=== PATIENT | male | born 1985 | race Caucasian/White ===

== ENCOUNTER 2022-03-24 08:59 | Emergency (ER) | payer BC, SELFPAY ==
[2022-03-24 09:04] VITALS: BP 150/87; PULSE 89; RESP 20; TEMP 37.1; O2SAT 100
--- NOTE | 2022-03-24 09:08 | ED.URI ---
HPI - URI/Sore Throat General Chief Complaint: Upper Respiratory Infection Stated Complaint: Sore Throat/Fever Time Seen by Provider: 03/24/22 09:08 Source: patient and RN notes reviewed History of Present Illness HPI Narrative: patient is a 36-year-old male who presents to the Urgent Care with complaints of sore throat, fever and cough. Patient states the cough started 3 days ago and he had a fever at 5:30 a.m. this morning of 103 F. Patient states that he has been taking ibuprofen. Denies any ill exposures. Denies any nausea or vomiting. No other acute complaints. Patient aware of the plan of care. Some parts of this dictation were generated by voice recognition software and may contain typographical and/or grammatical inaccuracies. Related Data Home Medications Medication Instructions Recorded Confirmed No Home Medications 03/24/22 03/24/22 Allergies Allergy/AdvReac Type Severity Reaction Status Date / Time No Known Allergies Allergy Verified 03/24/22 09:10 Review of Systems Review of Systems: CONSTITUTIONAL: Reports of fever EYES: Denies visual changes, redness, or discharge. ENT: reports of sore throat CARDIOVASCULAR: Denies chest pain, palpitations, or edema. RESPIRATORY: reports a cough without dyspnea GASTROINTESTINAL: Denies abdominal pain, nausea, vomiting, or diarrhea. GENITOURINARY: Denies dysuria or hematuria. SKIN: Denies rash or itching. MUSCULOSKELETAL: Denies back pain, joint pain, or myalgia. NEUROLOGIC: Denies headache, numbness, or weakness. All other systems reviewed are negative, except as documented in HPI. PMFSH Comments At the time of my signature, I reviewed and agree with the nursing past medical, surgical, social, and family history. There is no relevant family history pertinent to the patient complaint. Exam Narrative: GENERAL: This is a well-nourished, well-developed patient, in no apparent distress. HEAD: normocephalic, atraumatic. EYES: PERRL. Sclera clear/white. Vision is grossly intact. EARS: External ears normal, auditory canals clear and without drainage, TMs normal without perforation. Hearing grossly intact. NOSE: External nose normal with no obvious nasal discharge, nares without redness, no rhinorrhea. THROAT: Mucous membranes moist, posterior pharynx clear. mild postnasal drainage. NECK: Neck supple, non-tender Mild bilateral submandibular lymphadenopathy CARDIOVASCULAR: Regular rate and rhythm without murmurs, gallops, or rubs. RESPIRATORY: Clear to auscultation. Breath sounds equal bilaterally. No wheezes, rales, or rhonchi. SKIN: warm, intact with no suspicious lesions or rash, good texture and turgor. NEURO: awake, alert, and oriented to person, place and time. There were no obvious focal neurologic abnormalities. EXTREMITIES: No clubbing, cyanosis, or edema. Course Course Level of Care: Express Care Visit Vital Signs Vital signs: Vital Signs Temperature 98.8 F 03/24/22 09:04 Pulse Rate 89 03/24/22 09:04 Respiratory Rate 20 03/24/22 09:04 Blood Pressure 150/87 H 03/24/22 09:04 Pulse Oximetry 100 03/24/22 09:04 Oxygen Delivery Room Air 03/24/22 09:04 Temperature 98.8 F 03/24/22 09:11 Pulse Rate 89 03/24/22 09:11 Respiratory Rate 20 03/24/22 09:11 Blood Pressure 150/87 H 03/24/22 09:11 Pulse Oximetry 100 03/24/22 09:11 Oxygen Delivery Room Air 03/24/22 09:11 Reviewed- Patient is informed that they may have pre-hypertension or hypertension based on a blood pressure reading in the department. I recommend the patient call the primary care provider listed on their discharge instructions or a physician of their choice this week to arrange follow-up for further evaluation of possible pre-hypertension or hypertension. MDM - URI/Sore Throat MDM Narrative Medical decision making narrative: due to the lack of resources at our facility, unable to test for rapid strep or influenza. We will send a culture for
[2022-03-24 09:11] VITALS: BP 150/87; PULSE 89; RESP 20; TEMP 37.1; O2SAT 100
== END 2022-03-24 09:40 | disposition home or self-care (01) ==
PROVIDERS: Emergency Provider Nurse Practitioner Family
DX: J02.9 Acute pharyngitis, unspecified (principal)
CPT/HCPCS: 87081; 99202; G0463